=== PATIENT | female | born 1930 | race Caucasian/White ===

== ENCOUNTER 2018-02-13 10:30 | Inpatient (IN) | payer MEDICARE, OTHER ==
[2018-02-13 10:58] LABS: #Eosinphils 0.3 thou/uL (0.0-0.7); #Lymphocytes 1.6 thou/uL (1.20-3.40); #Monocytes 1.1 thou/uL (0.11-0.59); %Basophils 0.4 % (0.0-1.0); %Lymphocytes 14.6 % (21.0-51.0); %Monocytes 9.9 % (0.0-10.0); %Neutrophils 72.1 % (42.0-75.0); Hemoglobin 14.3 g/dL (14.0-18.0); Mean Corpuscular HGB CONC 33.8 g/dL (32.0-36.0); Mean Corpuscular Hemoglobin 30.2 pg (27.0-31.0); Mean Corpuscular Volume 89.5 fL (78.0-98.0); Mean Platelet Volume 8.2 fL (7.4-10.4); Platelet Count 307 thou/uL (130-400); RBC Distribution Width 12.1 % (11.5-14.5); Red Blood Cell (RBC) Count 4.72 mill/uL (4.70-6.10); White Blood Cell (WBC) Count 11.1 thou/uL (4.8-10.8)
[2018-02-13 11:17] LABS: ALT (SGPT) 12 U/L (8-55); AST (SGOT) 17 U/L (5-34); Albumin 4.2 g/dL (3.4-4.8); Alkaline Phosphatase 84 U/L (40-150); Anion Gap 12 mmol/L (10-20); BUN (Urea Nitrogen) 13 mg/dL (9.8-20.1); Bilirubin, Total 0.6 mg/dL (0.2-1.2); Calc. Creatinine Clearance 0 mL/min (70-130); Calcium 9.5 mg/dL (7.8-10.44); Carbon Dioxide 30 mmol/L (23-31); Chloride 101 mmol/L (98-107); Estimated GFR-MDRD 72; Globulin 3.3 g/dL (2.4-3.5); Glucose 129 mg/dL (83-110); Potassium 3.9 mmol/L (3.5-5.1); Protein, Total 7.5 g/dL (6.0-8.3); Sodium 139 mmol/L (136-145)
[2018-02-13] MEDS ORDERED: methylPREDNISolone Sod Succ/PF 125 MG/2 ML VIAL ONE (11:19)
[2018-02-13 11:21] LABS: CKMB 1.9 ng/mL (0-6.6); Troponin I Less than 0.010 ng/mL (< 0.028)
--- NOTE | 2018-02-13 11:47 | RAD ---
CHEST 1 VIEW: HISTORY: Pain. COPD. The patient wears oxygen. COMPARISON: None. FINDINGS: Normal cardiac silhouette. The pulmonary vessels and hilum are normal. Costophrenic angles are soraida r. There is atherosclerosis of the aorta. Patchy interstitial opacities throughout the lung parench yma. No pleural effusion or pneumothorax. IMPRESSION: 1. Atherosclerosis. No acute process. 2. Patchy interstitial opacities which are presumed to be chronic. POS: [facility]
--- NOTE | 2018-02-13 12:32 | CT ---
CT ANGIOGRAM OF THE THORACIC AND ABDOMINAL AORTA: HISTORY: Pain. Evaluate for dissection. COMPARISON: None. TECHNIQUE: CT angiogram of the thoracic and abdominal aorta is performed in the axial plane. Three-dimensional reformatted images are submitted for interpretation. FINDINGS: No mediastinal mass, lymphadenopathy, or hematoma. Heart is enlarged. No significant pericardial fl uid. There is adequate contrast opacification of the pulmonary arteries to the level of the lobar ar teries. No filling defect to suggest thromboembolism. Trachea and central bronchi are patent. There is scarring and calcification in both lung apices. Th ere is a focal infiltrate in the left lower lobe. Pneumonia is suspected. ABDOMEN CT: There is appropriate arterial phase of enhancement of the liver, spleen, pancreas, and adrenal glands . Calcified granulomas in the spleen are noted. Mild hypoattenuation limited due to hepatic steatos is is noted. Gallbladder is unremarkable. No gastrohepatic, retrocrural, or periportal lymphadenopathy. No mesenteric mass, lymphadenopathy, free air, or free fluid. Symmetric enhancement of the kidneys. No obstructive uropathy. Limited evaluation of the alimentary canal due to lack of oral contrast. No evidence of bowel obstru ction. Possible lipoma in the ascending colon. CT ANGIOGRAM: There is appropriate enhancement and luminal diameter of the ascending thoracic aorta, aortic arch, d escending thoracic aorta, and abdominal aorta to the level of the renal arteries. The intrarenal abd ominal aorta has a small focus of dilatation along its right aspect (axial image #120). There is als o a sacular aneurysm involving the left aspect of the infrarenal abdominal aorta. At this level, the aorta measures 2.3 x 2.0 cm. The aortic bifurcation is unremarkable. The inferior mesenteric arter y origin, superior mesenteric artery origin, celiac artery origin, and bilateral renal artery ostia a re noted. There appears to be moderate stenosis involving the right renal artery ostia. No lytic or blastic lesions in the osseous structures. IMPRESSION: 1. No evidence of dissection. 2. 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 3. Left lower lobe pneumonia. Continued surveillance to ensure resolution. POS: [facility]
[2018-02-13] MEDS ORDERED: Piperacillin/Tazobactam 4.5 GM VIAL ONE (12:53)
[2018-02-13] MEDS ORDERED: ISOVUE-370 76%-LOCM 1 ML ONE (12:55)
[2018-02-13] MEDS ORDERED: Ondansetron ODT 4 MG TAB PO PRN (14:02)
[2018-02-13] MEDS ORDERED: Acetaminophen 325 MG TAB PO PRN (14:02)
[2018-02-13] MEDS ORDERED: Albuterol Sulfate 1.25 MG/3 ML NEB NEB PRN (14:08)
[2018-02-13] MEDS ORDERED: ALPRAZolam 0.25 MG TAB PO PRN (14:08)
[2018-02-13 15:15] VITALS: BMI 26.7
--- NOTE | 2018-02-13 15:29 | HP ---
DATE OF ADMISSION: 02/13/2018 PRIMARY CARE PHYSICIAN: Madeleine Avalos M.D. Of note, the patient has two medical record numbers, the one she is registered today is [id number] and the other one which has her records from hospitalization last month and before is [id number]. By report of registration , these will be merged, but not until after she is discharged CHIEF COMPLAINT: Pain in back. HISTORY OF PRESENT ILLNESS: This is an 87-year-old female with a history of COPD and asthma, on nocturnal chronic oxygen, hypertension, dyslipidemia who reports to the emergency room with a complaint of pain in the left side of her back as well as left abdominal pain. She reports that it started yesterday. It is a stabbing quality like "being kicked by a horse" and rates it as severe and constant. It is located between her shoulder blades as well as the left side of her lower back and her left flank. She has also noticed an increase in cough over the past 3 days, productive of thick clear mucus, and her breathing seems more labored. She normally uses albuterol nebulizer 2 times per day and has increased it to 3-4 times per day since the onset of her symptoms. In addition, she has noticed some weakness as well as fever for a few days, no temperature was taken. Patient denies any precipitating or relieving factors. She does report a remote history of pneumonia that occurred 2-3 years ago. She was hospitalized last month and diagnosed with a TIA, denies any residual symptoms from that hospitalization. In the emergency room, the patient diagnosed with a left lower lobe pneumonia, treated with vancomycin 1 gram, Zosyn 4.5 grams, methylprednisolone 125 mg IV and DuoNeb and hospitalist called for admission. PAST MEDICAL HISTORY: Significant for, 1. Breast cancer with history of lumpectomy. 2. Dyslipidemia. 3. Hypertension. 4. Transient ischemic attack with hospitalization here last month, denies any deficits. 5. COPD and asthma with nocturnal oxygen use. PAST SURGICAL HISTORY: 1. Right lumpectomy. 2. Bilateral wrist. 3. Hysterectomy. SOCIAL HISTORY: The patient lives alone; however, her 16-year-old great granddaughter stays with her and she has multiple family members that live on her property. She denies any alcohol or tobacco. Her surrogate decision maker she requests her granddaughter, Tiffany, and requests FULL CODE status, but does not want any prolonged resuscitation if there is no chance of recovery. FAMILY HISTORY: Significant for cancer in multiple family members. MEDICATIONS: Reconciled with the list. Of note, I did not see the list, these were taken down by the nurse in the emergency room, as the granddaughter had taken the list back home. 1. Omeprazole 20 mg daily. 2. Zofran ODT 4 mg as needed. 3. Potassium chloride 20 mEq daily. 4. PreserVision vitamin. 5. Crestor 40 mg at bedtime. 6. Albuterol inhaler as needed. 7. DuoNeb as needed. 8. Alprazolam 1 mg every 8 hours as needed. The patient reports she does not take this or is not certain that she takes this. 9. Amlodipine 5 mg at bedtime. 10. Clopidogrel 75 mg daily. 11. Advair 500/50 b.i.d. 12. Lasix 40 mg daily. 13. Lorazepam 1 mg as needed. The patient reports she does not use this. 14. Mometasone ointment. 15. Naproxen 500 mg as needed. 16. Nitroglycerin tablets. The patient reports she has never used this. REVIEW OF SYSTEMS: Positive for the cough, change in breathing, fevers, and weakness. Negative for nausea, vomiting, headache, change in urine, or change in bowel habits. All remaining review of systems are reviewed and negative. PHYSICAL EXAMINATION: VITAL SIGNS: Blood pressure 160/68, pulse 80, respirations 20, sats 95% on 2 liters of oxygen. Temperature 98, pain is rated as a 5/10. GENERAL: Awake, alert, responsive, answers appropriately, in no apparent distress. HEENT: Pupils are equal, round, reactive to light. Extraocular movements are intact. Oral mucosa is pink, no mucosal lesions. NECK: Supple, nontender. LYMPHATICS: No palpable cervical or supraclavicular lymphadenopathy. LUNGS: She has left basilar rales, fair air movement with some audible wheezing. HEART: Normal S1 and S2, regular rate and rhythm, no audible murmurs. ABDOMEN: Soft. Present bowel sounds. Mild tenderness to palpation in the left quadrant without palpable defects and no rebound or guarding. EXTREMITIES: No clubbing, cyanosis, or edema. SKIN: No visible rashes. PSYCHIATRIC: Euthymic, linear, logical, goal-directed thought process, and answers the questions appropriately. NEUROLOGIC: Alert and oriented x4. LABORATORY DATA: Labs reviewed. 1. CBC: 11.1, 14.3, 42.2, 307, with 72% neutrophils. 2. Renal panel: 139, 3.9, 101, 30, 13, 0.76, 129. 3. LFTs negative. 4. Troponin negative. 5. Chest x-ray is personally reviewed, atherosclerosis without acute process and patchy interstitial opacities, assumed to be chronic. 6. CT dissection protocol shows no evidence of dissection, a small sacral aneurysm involving the infrarenal abdominal aorta, measuring 2.3 x 2 cm, left lower lobe pneumonia. IMPRESSION: 1. Pneumonia in a patient with underlying chronic obstructive pulmonary disease and asthma, with mild exacerbation. 2. Hypertension. 3. Dyslipidemia. 4. Recent transient ischemic attack, asymptomatic. 5. History of breast cancer. 6. Infrarenal aneurysm - needs outpatient monitoring. PLAN: 1. Admission to the hospital. Given the patient's age and comorbidities, she is at high risk of decompensation. 2. Patient was started on Zosyn and vancomycin in the emergency room. We will continue these medications for now. The pharmacy did dose the vancomycin, and I 'll lower the dose based on age and renal clearance for the Zosyn. 3. We will continue steroids and regional climate change analyst to prednisone starting tomorrow, schedule DuoNeb every 4 hours as well as p.r.n. albuterol. Continuous oxygen to maintain sats > 92%. 4. Continuing her home medications, which include a PPI, a statin, antihypertensive, and Plavix, and Lasix. We will order p.r.n. alprazolam at a much lower dose, as I am uncertain of how often patient needs this, monitoring for any symptoms of anxiousness. 5. We will request physical therapy to work patient with the goal of working on strengthening for the underlying weakness. 6. Deep venous thrombosis prophylaxis. We will use renally-dosed Lovenox as well as sequential compression devices if the patient can tolerate them. 7. Gastrointestinal prophylaxis not indicated. The patient is on a PPI at home. We will continue that. 8. Code status is FULL. Surrogate decision maker requested is her granddaughter, Tiffany. 9. I reviewed with patient this hospitalization, the plan for care, anticipated length of stay is 3-4 days, she demonstrates understanding and agrees. No questions or further needs at end of evaluation. VINEET
[2018-02-13] MEDS: Piperacillin/Tazobactam 3.375 GM in Sodium Chloride 0.9% 100 ML IVPB SCH (18:23)
[2018-02-13] MEDS: Amlodipine 5 MG TAB PO SCH (20:59)
[2018-02-13] MEDS: Rosuvastatin 20 MG TAB PO SCH (20:59)
[2018-02-14] MEDS: Piperacillin/Tazobactam 3.375 GM in Sodium Chloride 0.9% 100 ML IVPB SCH ×3 (00:45→12:52)
[2018-02-14 05:05] LABS: #Lymphocytes 0.9 thou/uL (1.20-3.40); #Monocytes 0.6 thou/uL (0.11-0.59); #Neutrophils 9.7 thou/uL (1.40-6.50); %Basophils 0.1 % (0.0-1.0); %Eosinophils 0.1 % (0.0-10.0); %Lymphocytes 7.6 % (21.0-51.0); %Monocytes 5.6 % (0.0-10.0); %Neutrophils 86.6 % (42.0-75.0); Mean Corpuscular HGB CONC 32.3 g/dL (32.0-36.0); Mean Corpuscular Hemoglobin 29.3 pg (27.0-31.0); Mean Corpuscular Volume 90.6 fL (78.0-98.0); Mean Platelet Volume 8.6 fL (7.4-10.4); Platelet Count 263 thou/uL (130-400); RBC Distribution Width 11.9 % (11.5-14.5); Red Blood Cell (RBC) Count 4.08 mill/uL (4.20-5.40); White Blood Cell (WBC) Count 11.1 thou/uL (4.8-10.8)
[2018-02-14 05:26] LABS: Anion Gap 12 mmol/L (10-20); BUN (Urea Nitrogen) 17 mg/dL (9.8-20.1); Calc. Creatinine Clearance 57 mL/min (70-130); Calcium 9.1 mg/dL (7.8-10.44); Carbon Dioxide 28 mmol/L (23-31); Chloride 103 mmol/L (98-107); Estimated GFR-MDRD 71; Glucose 230 mg/dL (83-110); Potassium 4.1 mmol/L (3.5-5.1); Sodium 139 mmol/L (136-145)
[2018-02-14] MEDS: Furosemide 40 MG TAB PO SCH (06:34)
[2018-02-14] MEDS: Enoxaparin Sodium 30 MG/0.3 ML SYRINGE SC SCH (08:13)
[2018-02-14] MEDS: predniSONE 20 MG TAB PO SCH (08:14)
[2018-02-14] MEDS: Clopidogrel Bisulfate 75 MG TAB PO SCH (08:14)
[2018-02-14] MEDS: Potassium Chloride 20 MEQ TAB PO SCH (08:14)
[2018-02-14] MEDS: Vancomycin HCl 1 GM in Premix Bag 1 BAG IVPB SCH (11:08)
[2018-02-14] MEDS: Piperacillin/Tazobactam 3.375 GM, Admixture Fee 1 EACH in Sodium Chloride 0.9% 100 ML IVPB SCH (18:04)
[2018-02-14] MEDS: Rosuvastatin 20 MG TAB PO SCH (21:57)
[2018-02-14] MEDS: Amlodipine 5 MG TAB PO SCH (21:58)
[2018-02-15] MEDS: Piperacillin/Tazobactam 3.375 GM, Admixture Fee 1 EACH in Sodium Chloride 0.9% 100 ML IVPB SCH ×4 (01:34→18:12)
--- NOTE | 2018-02-15 07:26 | PDOC.EVN ---
Event Note - Event Note Event Note: pt seen & examined h&p reviewed pt overall feels that her breathing is improved states she sees Dr. Combs for outpatient pulmonary medicine no fevers chills chest pain palpitations or discomfort overnight exam: AAA, NAD, seated on EOB cv: s1, s2, soft heart tones, no m/r/g, pulses 2+ b/l UE resp: dim air mvmt, end exp wheezing throughout, no rales, no crackles, mild dyspnea with protracted conversation abd: +bs, soft, non ttp ext: maee, able to self reposition w/o difficulty a/p PNA cont empiric abx apprec pulm c/s cont supportive O2 SIRS/ sepsis 2/2 above pending cx monitor COPD with likely exac 2/2 above steroids glc checks empiric abx as above nebs diet: as manasa activiyt: as manasa dvt ppx
[2018-02-15] MEDS: Furosemide 40 MG TAB PO SCH (07:27)
[2018-02-15] MEDS: Potassium Chloride 20 MEQ TAB PO SCH (07:27)
[2018-02-15] MEDS: Enoxaparin Sodium 30 MG/0.3 ML SYRINGE SC SCH (07:28)
[2018-02-15] MEDS: predniSONE 20 MG TAB PO SCH (07:28)
[2018-02-15] MEDS: Clopidogrel Bisulfate 75 MG TAB PO SCH (07:28)
[2018-02-15] MEDS ORDERED: Loratadine 10 MG TAB PO PRN (07:58)
[2018-02-15] MEDS ORDERED: Sodium Chloride 0.65% Nasal 44 ML BOT EA NARE PRN (07:58)
[2018-02-15] MEDS ORDERED: Mag-Al 1200 mg/1200 mg/30 ML UDCUP PO PRN (07:58)
[2018-02-15] MEDS ORDERED: Milk Of Magnesia 30 ML UDCUP PO PRN (07:58)
[2018-02-15] MEDS ORDERED: Loperamide HCl 2 MG CAP PO PRN (07:58)
[2018-02-15] MEDS ORDERED: Chloraseptic Spray 180 ml Bottle PO PRN (07:58)
[2018-02-15] MEDS ORDERED: Eucerin (Mineral Oil/Petrolatum,White) 30 gm Jar TOP PRN (07:58)
[2018-02-15] MEDS ORDERED: Senokot 8.6 MG TAB PO PRN (07:58)
[2018-02-15] MEDS ORDERED: Artificial Tears 18 DROP/0.9 ML EA EYE PRN (07:58)
[2018-02-15] MEDS ORDERED: hydrALAZINE 20 MG/ML VIAL SLOW IVP PRN (07:58)
[2018-02-15] MEDS ORDERED: Ondansetron HCl/PF 4 MG/2 ML Vial IVP PRN (07:58)
[2018-02-15] MEDS ORDERED: Diabetic Tussin 200 MG/10 ML UDCUP PO PRN (07:58)
[2018-02-15] MEDS ORDERED: Nitroglycerin 0.4 MG TAB (25 Tab Bottle) SL PRN (07:59)
--- NOTE | 2018-02-15 11:14 | PDOC.PN ---
- Subjective Encounter Start Date: 02/15/18 Encounter Start Time: 09:00 -: old records requested/rev pt has left side pleuritic pain, no fever, has dyspnea but per pt seems baseline level - Objective MAR Reviewed: Yes Vital Signs & Weight: Vital Signs (12 hours) Temp Pulse Resp BP Pulse Ox 02/15/18 10:28 90 12 02/15/18 08:00 97.5 F L 89 22 H 94 L 02/15/18 07:37 97.5 F L 89 22 H 155/89 H 94 L 02/15/18 06:51 90 14 02/15/18 05:35 97.9 F 78 18 156/64 H 92 L 02/15/18 00:00 98.1 F 81 18 119/61 96 I&O: 02/14/18 02/15/18 02/16/18 06:59 06:59 06:59 Intake Total 1120 240 Balance 1120 240 Result Diagrams: 02/14/18 04:27 02/14/18 04:27 Additional Labs: Accuchecks 02/14/18 11:38 POC Glucose 260 H Phys Exam - Physical Examination Constitutional: NAD HEENT: PERRLA, moist MMs, sclera anicteric Neck: no JVD, supple Respiratory: no wheezing, no rhonchi left base rales Cardiovascular: RRR, no significant murmur, no rub Gastrointestinal: soft, non-tender, no distention, positive bowel sounds Musculoskeletal: no edema, pulses present Neurological: non-focal, normal sensation, moves all 4 limbs Lymphatic: no nodes Psychiatric: normal affect, A&O x 3 Skin: no rash, normal turgor Dx/Plan (1) COPD exacerbation Code(s): J44.1 - CHRONIC OBSTRUCTIVE PULMONARY DISEASE W (ACUTE) EXACERBATION Status: Acute Comment: improving (2) Pneumonia Code(s): J18.9 - PNEUMONIA, UNSPECIFIED ORGANISM Status: Acute Qualifiers: Laterality: left Lung location: lower lobe of lung Comment: community acquired, bacterial (3) Aneurysm of infrarenal abdominal aorta Code(s): I71.4 - ABDOMINAL AORTIC ANEURYSM, WITHOUT RUPTURE Status: Chronic Comment: outpt monitoring (4) Dyslipidemia Code(s): E78.5 - HYPERLIPIDEMIA, UNSPECIFIED Status: Chronic (5) GERD (gastroesophageal reflux disease) Code(s): K21.9 - GASTRO-ESOPHAGEAL REFLUX DISEASE WITHOUT ESOPHAGITIS Status: Chronic (6) Hypertension Code(s): I10 - ESSENTIAL (PRIMARY) HYPERTENSION Status: Chronic (7) Chronic respiratory failure with hypoxia, on home O2 therapy Code(s): J96.11 - CHRONIC RESPIRATORY FAILURE WITH HYPOXIA; Z99.81 - DEPENDENCE ON SUPPLEMENTAL OXYGEN Status: Chronic - Plan cont current plan of care, continue antibiotics, respiratory therapy * medication reviewed as below * symptomatic treatment * continue vancomycin and zosyn which is already started * continue prednisone * pt is using home oxygen during night Review of Systems - Review of Systems Eyes: negative: Pain, Vision Change, Conjunctivae Inflammation, Eyelid Inflammation, Redness, Other ENT: negative: Ear Pain, Ear Discharge, Nose Pain, Nose Discharge, Nose Congestion, Mouth Pain, Mouth Swelling, Throat Pain, Throat Swelling, Other Respiratory: Cough, Pleuritic Pain. negative: Dry, Shortness of Breath, Hemoptysis, SOB with Excertion, Sputum, Wheezing Cardiovascular: negative: chest pain, palpitations, orthopnea, paroxysmal nocturnal dyspnea, edema, light headedness, other Gastrointestinal: negative: Nausea, Vomiting, Abdominal Pain, Diarrhea, Constipation, Melena, Hematochezia, Other Genitourinary: negative: Dysuria, Frequency, Incontinence, Hematuria, Retention , Other Musculoskeletal: negative: Neck Pain, Shoulder Pain, Arm Pain, Back Pain, Hand Pain, Leg Pain, Foot Pain, Other Skin: negative: Rash, Lesions, Hugh, Bruising, Other - Medications/Allergies Allergies/Adverse Reactions: Allergies Allergy/AdvReac Type Severity Reaction Status Date / Time codeine Allergy Verified 02/13/18 14:41 Medications: Current Medications Acetaminophen (Tylenol) 650 mg PO Q6H PRN PRN Reason: Headache/Fever or Pain Last Admin: 02/14/18 04:44 Dose: 650 mg Al Hydroxide/Mg Hydroxide (Maalox) 15 ml PO Q4H PRN PRN Reason: Heartburn or Indigestion Albuterol Sulfate (Albuterol Sulfate) 1.25 mg NEB [id number] PRN PRN Reason: Dyspnea Albuterol/Ipratropium (Duoneb) 3 ml NEB [id number] [id number] Last Admin: 02/15/18 10:28 Dose: 3 ml Alprazolam (Xanax) 0.25 mg PO TIDPRN PRN PRN Reason: Anxiety Last Admin: 02/13/18 20:59 Dose: 0.25 mg Amlodipine Besylate (Norvasc) 5 mg PO HS [facility] Last Admin: 02/14/18 21:58 Dose: 5 mg Artificial Tears (Tears Naturale) 0 drop EA EYE PRN PRN PRN Reason: Dry Eyes Clopidogrel Bisulfate (Plavix) 75 mg PO DAILY [facility] Last Admin: 02/15/18 07:28 Dose: 75 mg Enoxaparin Sodium (Lovenox) 30 mg SC 0900 [facility] Last Admin: 02/15/18 07:28 Dose: 30 mg Furosemide (Lasix) 40 mg PO DAILY-AC [facility] Last Admin: 02/15/18 07:27 Dose: 40 mg Guaifenesin (Robitussin Sf) 200 mg PO Q4H PRN PRN Reason: Cough Hydralazine HCl (Apresoline) 10 mg SLOW IVP Q4H PRN PRN Reason: Systolic BP > 180 Vancomycin HCl 1 gm/ Device 200 mls @ 200 mls/hr IVPB 1200 [facility] Last Admin: 02/14/18 11:08 Dose: 200 mls Piperacillin Sod/Tazobactam Sod 3.375 gm/ Miscellaneous Medication 1 each/ Sodium Chloride 100 mls @ 200 mls/hr IVPB Q6HR [facility] Last Admin: 02/15/18 06:59 Dose: 100 mls Loperamide HCl (Imodium) 2 mg PO PRN PRN PRN Reason: Diarrhea/Loose Stools Loratadine (Claritin) 10 mg PO DAILYPRN PRN PRN Reason: Sinus Symptoms Magnesium Hydroxide (Milk Of Magnesium) 30 ml PO DAILYPRN PRN PRN Reason: Constipation Mineral Oil/White Petrolatum (Eucerin Cream) 0 gm TOP BIDPRN PRN PRN Reason: Dry Skin Miscellaneous Medication (Pharmacy To Dose) 1 each IVPB ONE PRN PRN Reason: Pharmacy to dose Stop: 03/15/18 14:07 Mometasone Furoate/Formoterol Fumar (Dulera 100 Mcg/5 Mcg Inhaler) 1 puff INH BID-RT [facility] Nitroglycerin (Nitrostat) 0.4 mg SL Q5MIN PRN PRN Reason: Chest Pain Ondansetron HCl (Zofran Odt) 4 mg PO Q6H PRN PRN Reason: Nausea/Vomiting Ondansetron HCl (Zofran) 4 mg IVP Q6H PRN PRN Reason: Nausea/Vomiting Pantoprazole Sodium (Protonix) 20 mg PO DAILY [facility] Last Admin: 02/15/18 07:28 Dose: 20 mg Phenol (Chloraseptic [place] 180 Ml Bot) 0 ml PO PRN PRN PRN Reason: Sore Throat Potassium Chloride (K-Dur) 20 meq PO [facility] Last Admin: 02/15/18 07:27 Dose: 20 meq Prednisone (Prednisone) 40 mg PO [facility] Last Admin: 02/15/18 07:28 Dose: 40 mg Rosuvastatin Calcium (Crestor) [address] [facility] Last Admin: 02/14/18 21:57 Dose: 40 mg Senna (Senokot) 2 tab PO HSPRN PRN PRN Reason: Constipation Sodium Chloride ([place] Nasal [place] 0.65%) 0 ml EA NARE QIDPRN PRN PRN Reason: Nasal Congestion Sodium Chloride (Flush - Normal Saline) 10 ml IVF Q12HR [facility] Last Admin: 02/15/18 08:53 Dose: 10 ml Sodium Chloride (Flush - Normal Saline) 10 ml IVF PRN PRN PRN Reason: Saline Flush
[2018-02-15] MEDS: Vancomycin HCl 1 GM in Premix Bag 1 BAG IVPB SCH (12:11)
--- NOTE | 2018-02-15 12:57 | CON ---
DATE OF CONSULTATION: 02/15/2018 SERVICE: Pulmonary Medicine. REASON FOR CONSULTATION: COPD exacerbation. HISTORY OF PRESENT ILLNESS: Patient is an 87-year-old white female with past medical history signifi cant for moderately severe COPD. She was in her usual state of health until roughly 3 days prior to admission when she started having fevers, chills, and increasing cough. She presented to the [facility] because of dyspnea. Ultimately, CT dissection protocol was done because of pleuritic back pain on the left. This confirmed her left lower lobe pneumonia. She has been on appropriate antibiotics for the past day and a half. She is feeling much improved. Her breathing is much easier. She denies a ny current fevers, chills, nausea or vomiting. Her chest discomfort is better. PAST MEDICAL HISTORY: 1. COPD, moderately severe. 2. Dyslipidemia. 3. Hypertension. 4. History of transient ischemic attack. 5. History of breast cancer, status post lumpectomy. PAST SURGICAL HISTORY: 1. Right lumpectomy. 2. Bilateral wrist surgeries. 3. Hysterectomy. FAMILY HISTORY: Noncontributory. SOCIAL HISTORY: The patient lives alone. She is fully independent in her ADLs. She denies any alco hol or illicit drug use. She has no exposure to chemicals, asbestos or tuberculosis. She was a jayden te smoker and quit over 25 years ago, but prior to that, she had a greater than [id number] history of smoking. ALLERGIES: CODEINE. MEDICATIONS: List of her inpatient medications were reviewed and modified. REVIEW OF SYSTEMS: General, head, ears, eyes, nose, throat, cardiovascular, respiratory, GI, , mus culoskeletal, neurologic and skin is negative except as mentioned in the HPI. PHYSICAL EXAMINATION: VITAL SIGNS: Afebrile, pulse 89, blood pressure 155/89, respirations 22, saturation 94% on 2 liters nasal cannula. GENERAL: Patient is awake, alert, no apparent distress. LUNGS: Excellent air entry without prolonged expiratory phase, wheezing, rhonchi or crackles. HEART: Normal rate and regular. ABDOMEN: Soft, nontender, nondistended. Bowel sounds are positive. MUSCULOSKELETAL: No cyanosis or clubbing. No pitting in the bilateral lower extremities. NEUROLOGIC: Grossly nonfocal. LABORATORY DATA: WBC 11.1, hemoglobin 12.0, platelets 263,000. Basic metabolic profile and liver fu nction studies are unremarkable. BNP and troponin are unremarkable. Blood sugar ranges from 129-260 . Blood cultures x2 are negative. IMAGING DATA: CT dissection protocol demonstrates left lower lobe infiltrate. This is located in th e dependent portion of her lung. ASSESSMENT: 1. Acute hypoxic respiratory failure, resolved. 2. Chronic obstructive pulmonary disease with acute exacerbation. 3. Healthcare-associated pneumonia. 4. Gastroesophageal reflux disease. PLAN: The patient will be continued on her broad spectrum antibiotics. If tomorrow morning, all cul ture results remain negative, I would consider deescalating antibiotics to complete a total duration of 7 days. I will deescalate her antibiotics and space out her nebulized medications at touch. On d ischarge from the hospital, she will need to resume her home medications. Steroids should be limited to a total duration of 5 days.
--- NOTE | 2018-02-15 13:24 | PQF ---
CLINICAL DOCUMENTATION IMPROVEMENT CLARIFICATION FORM: ICD-10 Updated PLEASE DO AN ADDENDUM TO THE PROGRESS NOTE WITH ANY DOCUMENTATION UPDATES OR ADDITIONS AND CARRY THROUGH TO DC SUMMARY. THANK YOU. DATE: 02/15 ATTN: DR. TAY AMEZQUITA Please exercise your independent, professional judgment in responding to the clarification form. Clinical indicators are provided on the bottom of this form for your review. Please check appropriate box(s): [ ] Acute Respiratory Failure: [ ] with Hypoxia [ ] with Hypercapnia [ ] Acute On Chronic Respiratory Failure: [ ] with Hypoxia [ ] with Hypercapnia [ x ] Chronic Respiratory Failure only: [x ] with Hypoxia [ ] with Hypercapnia [ ] Other diagnosis [ ] Unable to determine For continuity of documentation, please document condition throughout progress notes and discharge summary. Thank You. CLINICAL INDICATORS - SIGNS / SYMPTOMS / LABS ER PRESENTATION 02/13: RA SAT 87%, PLACED ON 2L NC, 95% RR: 24 SUDDEN ONSET SOB THIS MORNING PN 02/15: DX/PLAN: 1) COPD W/ACUTE EXACERBATION; 7) CHRONIC RESPIRATORY FAILURE W/HYPOXIA, ON HOME 02 THERAPY RISK FACTORS: NOCTURNAL HOME 02 USE COPD W/ACUTE EXACERBATION LLL COMMUNITY ACQUIRED PNEUMONIA TREATMENTS: SUPPLEMENTAL OXYGEN (2L NC 02/13 - PRESENT) RESPIRATORY TREATMENTS (DUO NEB 02/13 - PRESENT; DULERA INHALER 02/13 - PRESENT) IV ANTIBIOTIC (ZOSYN & VANCOMYCIN 02/13 - PRESENT) THANK YOU! Mary (This form is maintained as a part of the permanent medical record) 2014 [employer]. All Rights Reserved Mary Guzman RN, BSN [email or web address] Office: [phone] [facility]
[2018-02-15] MEDS: Mometasone/Formoterol 120 PUFF INHALER INH SCH (18:29)
[2018-02-15] MEDS: Amlodipine 5 MG TAB PO SCH ×2 (20:15→22:58)
[2018-02-15] MEDS: Rosuvastatin 20 MG TAB PO SCH (20:15)
[2018-02-16] MEDS: Piperacillin/Tazobactam 3.375 GM, Admixture Fee 1 EACH in Sodium Chloride 0.9% 100 ML IVPB SCH ×3 (00:05→11:39)
[2018-02-16] MEDS: Vancomycin HCl 1 GM in Premix Bag 1 BAG IVPB SCH ×2 (01:33→11:40)
[2018-02-16 05:52] LABS: Anion Gap 8 mmol/L (10-20); BUN (Urea Nitrogen) 14 mg/dL (9.8-20.1); Calc. Creatinine Clearance 55 mL/min (70-130); Calcium 8.7 mg/dL (7.8-10.44); Carbon Dioxide 35 mmol/L (23-31); Chloride 103 mmol/L (98-107); Estimated GFR-MDRD 68; Glucose 144 mg/dL (83-110); Potassium 3.2 mmol/L (3.5-5.1); Sodium 143 mmol/L (136-145)
[2018-02-16 06:29] LABS: #Eosinphils 0.1 thou/uL (0.0-0.7); #Lymphocytes 1.6 thou/uL (1.20-3.40); #Monocytes 0.7 thou/uL (0.11-0.59); #Neutrophils 5.8 thou/uL (1.40-6.50); %Basophils 0.2 % (0.0-1.0); %Eosinophils 0.7 % (0.0-10.0); %Lymphocytes 19.8 % (21.0-51.0); %Monocytes 8.4 % (0.0-10.0); Hemoglobin 11.1 g/dL (12.0-16.0); Mean Corpuscular HGB CONC 31.3 g/dL (32.0-36.0); Mean Corpuscular Hemoglobin 28.6 pg (27.0-31.0); Mean Corpuscular Volume 91.6 fL (78.0-98.0); Mean Platelet Volume 8.7 fL (7.4-10.4); Platelet Count 268 thou/uL (130-400); RBC Distribution Width 12.1 % (11.5-14.5); Red Blood Cell (RBC) Count 3.89 mill/uL (4.20-5.40); White Blood Cell (WBC) Count 8.2 thou/uL (4.8-10.8)
[2018-02-16 07:13] VITALS: TEMP 97.9
[2018-02-16] MEDS: Mometasone/Formoterol 120 PUFF INHALER INH SCH (07:27)
[2018-02-16] MEDS: Enoxaparin Sodium 30 MG/0.3 ML SYRINGE SC SCH (07:40)
[2018-02-16] MEDS: Potassium Chloride 20 MEQ TAB PO SCH (07:41)
[2018-02-16] MEDS: Clopidogrel Bisulfate 75 MG TAB PO SCH (07:41)
[2018-02-16] MEDS: predniSONE 20 MG TAB PO SCH (07:41)
[2018-02-16] MEDS: Furosemide 40 MG TAB PO SCH (07:42)
[2018-02-16] MEDS ORDERED: Potassium Chloride 20 MEQ TAB PO SCH (08:00)
--- NOTE | 2018-02-16 11:16 | PDOC.PN ---
- Subjective Encounter Start Date: 02/16/18 Encounter Start Time: 09:00 Patient seen and examined. No new complaints. No overnight events - Objective MAR Reviewed: Yes Vital Signs & Weight: Vital Signs (12 hours) Temp Pulse Resp BP Pulse Ox 02/16/18 08:00 97.9 F 70 18 96 02/16/18 07:09 97.9 F 70 18 168/76 H 92 L 02/16/18 03:11 97.8 F 68 18 159/66 H 92 L 02/16/18 00:00 98.1 F 75 20 164/78 H 96 I&O: 02/15/18 02/16/18 02/17/18 06:59 06:59 06:59 Intake Total 1120 840 360 Balance 1120 840 360 Result Diagrams: 02/16/18 04:45 02/16/18 04:45 Phys Exam - Physical Examination Constitutional: NAD HEENT: PERRLA, moist MMs, sclera anicteric Neck: no JVD, supple Respiratory: no wheezing, no rales, no rhonchi Cardiovascular: RRR, no significant murmur, no rub Gastrointestinal: soft, non-tender, no distention, positive bowel sounds Musculoskeletal: no edema, pulses present Neurological: non-focal, normal sensation, moves all 4 limbs Psychiatric: normal affect, A&O x 3 Skin: no rash, normal turgor Dx/Plan (1) COPD exacerbation Code(s): J44.1 - CHRONIC OBSTRUCTIVE PULMONARY DISEASE W (ACUTE) EXACERBATION Status: Acute Comment: improving (2) Pneumonia Code(s): J18.9 - PNEUMONIA, UNSPECIFIED ORGANISM Status: Acute Qualifiers: Laterality: left Lung location: lower lobe of lung Comment: community acquired, bacterial (3) Aneurysm of infrarenal abdominal aorta Code(s): I71.4 - ABDOMINAL AORTIC ANEURYSM, WITHOUT RUPTURE Status: Chronic Comment: outpt monitoring (4) Dyslipidemia Code(s): E78.5 - HYPERLIPIDEMIA, UNSPECIFIED Status: Chronic (5) GERD (gastroesophageal reflux disease) Code(s): K21.9 - GASTRO-ESOPHAGEAL REFLUX DISEASE WITHOUT ESOPHAGITIS Status: Chronic (6) Hypertension Code(s): I10 - ESSENTIAL (PRIMARY) HYPERTENSION Status: Chronic (7) Chronic respiratory failure with hypoxia, on home O2 therapy Code(s): J96.11 - CHRONIC RESPIRATORY FAILURE WITH HYPOXIA; Z99.81 - DEPENDENCE ON SUPPLEMENTAL OXYGEN Status: Chronic - Plan cont current plan of care, continue antibiotics * levaquin on discharge * prednisone * medication reviewed as below * symptomatic treatment * see discharge michelle. Review of Systems - Review of Systems Eyes: negative: Pain, Vision Change, Conjunctivae Inflammation, Eyelid Inflammation, Redness, Other ENT: negative: Ear Pain, Ear Discharge, Nose Pain, Nose Discharge, Nose Congestion, Mouth Pain, Mouth Swelling, Throat Pain, Throat Swelling, Other Respiratory: negative: Cough, Dry, Shortness of Breath, Hemoptysis, SOB with Excertion, Pleuritic Pain, Sputum, Wheezing Cardiovascular: negative: chest pain, palpitations, orthopnea, paroxysmal nocturnal dyspnea, edema, light headedness, other Gastrointestinal: negative: Nausea, Vomiting, Abdominal Pain, Diarrhea, Constipation, Melena, Hematochezia, Other Genitourinary: negative: Dysuria, Frequency, Incontinence, Hematuria, Retention , Other Musculoskeletal: negative: Neck Pain, Shoulder Pain, Arm Pain, Back Pain, Hand Pain, Leg Pain, Foot Pain, Other - Medications/Allergies Allergies/Adverse Reactions: Allergies Allergy/AdvReac Type Severity Reaction Status Date / Time codeine Allergy Verified 02/13/18 14:41 Medications: Current Medications Acetaminophen (Tylenol) 650 mg PO Q6H PRN PRN Reason: Headache/Fever or Pain Last Admin: 02/14/18 04:44 Dose: 650 mg Al Hydroxide/Mg Hydroxide (Maalox) 15 ml PO Q4H PRN PRN Reason: Heartburn or Indigestion Albuterol Sulfate (Albuterol Sulfate) 1.25 mg NEB [id number] PRN PRN Reason: Dyspnea Albuterol/Ipratropium (Duoneb) 3 ml NEB [id number] [facility] Last Admin: 02/16/18 10:45 Dose: 3 ml Alprazolam (Xanax) 0.25 mg PO TIDPRN PRN PRN Reason: Anxiety Last Admin: 02/13/18 20:59 Dose: 0.25 mg Amlodipine Besylate (Norvasc) 5 mg PO HS [facility] Last Admin: 02/15/18 22:58 Dose: 5 mg Artificial Tears (Tears Naturale) 0 drop EA EYE PRN PRN PRN Reason: Dry Eyes Clopidogrel Bisulfate (Plavix) 75 mg PO DAILY [facility] Last Admin: 02/16/18 07:41 Dose: 75 mg Enoxaparin Sodium (Lovenox) 30 mg SC 0900 [facility] Last Admin: 02/16/18 07:40 Dose: 30 mg Furosemide (Lasix) 40 mg PO DAILY-AC [facility] Last Admin: 02/16/18 07:42 Dose: 40 mg Guaifenesin (Robitussin Sf) 200 mg PO Q4H PRN PRN Reason: Cough Hydralazine HCl (Apresoline) 10 mg SLOW IVP Q4H PRN PRN Reason: Systolic BP > 180 Piperacillin Sod/Tazobactam Sod 3.375 gm/ Miscellaneous Medication 1 each/ Sodium Chloride 100 mls @ 200 mls/hr IVPB Q6HR [facility] Last Admin: 02/16/18 06:08 Dose: 100 mls Vancomycin HCl 1 gm/ Device 200 mls @ 200 mls/hr IVPB 1200,2359 [facility] Last Admin: 02/16/18 01:33 Dose: 200 mls Loperamide HCl (Imodium) 2 mg PO PRN PRN PRN Reason: Diarrhea/Loose Stools Loratadine (Claritin) 10 mg PO DAILYPRN PRN PRN Reason: Sinus Symptoms Magnesium Hydroxide (Milk Of Magnesium) 30 ml PO DAILYPRN PRN PRN Reason: Constipation Mineral Oil/White Petrolatum (Eucerin Cream) 0 gm TOP BIDPRN PRN PRN Reason: Dry Skin Miscellaneous Medication (Pharmacy To Dose) 1 each IVPB ONE PRN PRN Reason: Pharmacy to dose Stop: 03/15/18 14:07 Mometasone Furoate/Formoterol Fumar (Dulera 100 Mcg/5 Mcg Inhaler) 1 puff INH BID-RT [facility] Last Admin: 02/16/18 07:27 Dose: 1 puff Nitroglycerin (Nitrostat) 0.4 mg SL Q5MIN PRN PRN Reason: Chest Pain Ondansetron HCl (Zofran Odt) 4 mg PO Q6H PRN PRN Reason: Nausea/Vomiting Ondansetron HCl (Zofran) 4 mg IVP Q6H PRN PRN Reason: Nausea/Vomiting Pantoprazole Sodium (Protonix) 20 mg PO DAILY [facility] Last Admin: 02/16/18 07:41 Dose: 20 mg Phenol (Chloraseptic [place] 180 Ml Bot) 0 ml PO PRN PRN PRN Reason: Sore Throat Potassium Chloride (K-Dur) 20 meq PO QAM-[facility] Last Admin: 02/16/18 07:41 Dose: 20 meq Prednisone (Prednisone) 40 mg PO QAM-WM [facility] Last Admin: 02/16/18 07:41 Dose: 40 mg Rosuvastatin Calcium (Crestor) 40 mg PO [facility] Last Admin: 02/15/18 20:15 Dose: 40 mg Senna (Senokot) 2 tab PO HSPRN PRN PRN Reason: Constipation Sodium Chloride ([place] Nasal [place] 0.65%) 0 ml EA NARE QIDPRN PRN PRN Reason: Nasal Congestion Sodium Chloride (Flush - Normal Saline) 10 ml IVF Q12HR [facility] Last Admin: 02/16/18 07:42 Dose: 10 ml Sodium Chloride (Flush - Normal Saline) 10 ml IVF PRN PRN PRN Reason: Saline Flush
[2018-02-16 11:28] VITALS: BP 164/74
--- NOTE | 2018-02-16 12:49 | DIS ---
DATE OF ADMISSION: 02/13/2018 DATE OF DISCHARGE: 02/16/2018 PRIMARY CARE PHYSICIAN: Madeleine Avalos M.D. DISCHARGE DISPOSITION: Home. PRIMARY DISCHARGE DIAGNOSES: Chronic obstructive pulmonary disease exacerbation, left lower lobe com munity-acquired pneumonia, hypokalemia corrected. SECONDARY DISCHARGE DIAGNOSES: Hypertension, gastroesophageal reflux disease, dyslipidemia, chronic respiratory failure with hypoxia on nocturnal oxygen therapy, aneurysm of infrarenal abdominal aorta. PRIMARY PROCEDURE/OPERATION: None. RADIOLOGICAL INVESTIGATION: CT dissection was negative for dissection, but it showed infrarenal abdo zak aortic aneurysm. Chest x-ray showed left lower lobe pneumonia. SIGNIFICANT LABORATORY DATA: Hemoglobin 11.1, creatinine 0.80, potassium 3.2. LFT normal. Cardiac enzymes negative. Blood culture negative. DISCHARGE MEDICATIONS: Levaquin 750 mg p.o. daily for 5 more days, Ventolin nebulization q.4 hourly, Proventil 2 puffs q.6 hourly p.r.n., Norvasc 5 mg p.o. at bedtime, Plavix 75 mg p.o. daily, Advair 1 inhalation b.i.d., Lasix 40 mg p.o. daily, nitroglycerin 0.4 mg sublingual p.r.n., omeprazole 20 mg p.o. at bedtime, Zofran 4 mg sublingual q.6 hourly p.r.n., potassium chloride 20 mEq p.o. daily, pred nisone 40 mg p.o. daily for 5 days, Crestor 40 mg p.o. at bedtime, Ocuvite 1 capsule p.o. b.i.d. CONTRAINDICATIONS: None. CODE STATUS: FULL CODE. INPATIENT ABRASIVE GRADER: Dr. Avila TEST RESULTS PENDING ON DISCHARGE: None. ALLERGIES: CODEINE. DISCHARGE DISPOSITION: Home. DISCHARGE PLAN: Post hospital, patient will follow with primary care physician in 1 week. The patie nt will follow up with Dr. Avila as instructed. HOSPITAL COURSE: An 87-year-old female who was admitted by Beth Florentino. Please see her H&P for furt her details. She was having cough, pleuritic chest pain, low grade fever and dyspnea. She was admit justin for left lower lobe pneumonia and she was also having mild chronic obstructive pulmonary disease exacerbation. This patient has chronic respiratory failure and she is using oxygen predominantly dur ing nighttime. She was admitted to medical floor and she was treated with vancomycin and Zosyn initi ally and on discharge we changed to Levaquin for another 5 days. The patient's home medication was c ontinued. The patient is also given prescription for Dulera, prednisone for 5 days given, antibiotic therapy total of 7 days given. Pulmonary cleared her for discharge. Patient is also doing very wel l. The patient is ambulatory, tolerating p.o. well, and she wants to go home today. The patient is seen and examined at bedside today. Please see my progress note from today for furthe r detail. All new medication prescriptions given to her.
--- NOTE | 2018-02-16 13:56 | PRG ---
DATE OF SERVICE: 02/16/2018 SERVICE: Pulmonary Medicine. INTERVAL HISTORY: The patient is doing fine from a respiratory standpoint. Denies any current chest pain, nausea, vomiting, fevers or chills. Her breathing is essentially back to baseline. She feels absolutely wonderful today. She slept upright yesterday and avoided p.o. within couple of hours of going to bed. She already thinks she has noticed difference in her breathing. I think it is a littl e too early to tell, but I am happy with her optimism. OBJECTIVE: VITAL SIGNS: Afebrile, pulse 82, blood pressure 147/101, respirations 16, saturation 98% on room air . GENERAL: The patient is awake, alert, no apparent distress. LUNGS: Decent air entry. Minimal rhonchi are present and they have improved since yesterday. There is a prolonged expiratory phase and minimal wheezing present. No crackles. HEART: Normal rate, regular. ABDOMEN: Soft, nontender, nondistended. Bowel sounds positive. MUSCULOSKELETAL: No cyanosis or clubbing. No pitting in the bilateral lower extremities. NEUROLOGIC: Grossly nonfocal. LABORATORY DATA: WBC 8.2, hemoglobin 11.1, platelets 268,000. Basic metabolic profile is essentiall y unremarkable except for bicarbonate of 35 and potassium 3.2. Blood cultures x2 remain negative to date. ASSESSMENT: 1. Acute hypoxic respiratory failure, resolved. 2. Chronic obstructive pulmonary disease with acute exacerbation, improving. 3. Healthcare-associated pneumonia. 4. Gastroesophageal reflux disease. DISCUSSION AND PLAN: The patient can be transitioned out of the hospital. Complete antibiotic for a total duration of 7 days. Steroids will be discontinued after 7 days. She will need to follow up w robert Combs in the outpatient setting to consider a polysomnogram. She has been adhere to acid ref lux precautions moving forward, indefinitely. If she remains in-house, Pulmonary Critical Care will continue to follow along.
== END 2018-02-16 13:15 | disposition home or self-care (01) | DRG 194 ==
LOC: EDSEX 10:30 → ERS 10:30 → T4-B 14:38
PROVIDERS: ADMIT Family Medicine; ATTEND Family Medicine
DX: J15.9 Unspecified bacterial pneumonia (principal); J44.1 Chronic obstructive pulmonary disease with (acute) exacerbation; J44.0 Chronic obstructive pulmonary disease with (acute) lower respiratory infection; J96.11 Chronic respiratory failure with hypoxia; I10 Essential (primary) hypertension; E78.5 Hyperlipidemia, unspecified; E87.6 Hypokalemia; I71.4 Abdominal aortic aneurysm, without rupture; K21.9 Gastro-esophageal reflux disease without esophagitis; Z85.3 Personal history of malignant neoplasm of breast; Z86.73 Personal history of transient ischemic attack (TIA), and cerebral infarction without residual deficits; Z99.81 Dependence on supplemental oxygen; Z79.02 Long term (current) use of antithrombotics/antiplatelets
CPT/HCPCS: 36415; 36416; 71045; 71275; 80048; 80053; 80202; 82553; 83880; 84484; 85025; 87040; 93005; 94640; 96365; 96367; 96375; A4216; G8978-GP-CL; G8979-GP-CL; G8980-GP-CL; J1650; J2543; J2930; J3370; J7050; J7506; J7620